=== PATIENT | female | born 1965 | race Caucasian/White ===

== ENCOUNTER 2017-11-05 10:12 | Emergency (ER) | payer OTHER ==
[~2017-11-05] VITALS: Ht 177.8 cm; Wt 76.8 kg
[~2017-11-05 10:12] MED LIST: BENTYL20 MG PO; HYDROCODON-ACE1 EAC7 PO; MIGRANE MED PO; NORVASC10 M1 PO; POTASSIUM; SKELAXIN800 MG PO; TORADOL10 MG PO; TRAMADOL HCL50 MG PO; ULTRAM50 MG PO; VALIUM5 MG PO; ZIAC 10/6.251 TABLET PO; ZOFRAN4 MG PO; [UNRECOGNIZED DRUG - OTHER] PO
[2017-11-05 10:41] LABS: HEMATOCRIT 39.1 % (36.0-46.0); HEMOGLOBIN 13.7 G/DL (11.9-15.5); MCH 33.3 PG (29.0-34.0); MCV 95.1 FL (83-99); RBC DIS.WIDTH-CV 12.7 % (11.8-14.6); RBC DIS.WIDTH-SD 44.3 % (39-53); RED BLOOD COUNT 4.11 M/uL (3.80-5.20); WHITE BLOOD COUNT 9.5 K/uL (4.1-10.2)
[2017-11-05 10:51] LABS: APPEARANCE CLEAR ((CLEAR)); BILIRUBIN NEGATIVE; BLOOD NEGATIVE; COLOR STRAW ((YELLOW)); GLUCOSE (STRIP) NEGATIVE; KETONES NEGATIVE; LEUKOCYTES NEGATIVE; NITRITE NEGATIVE; PROTEIN (STRIP) NEGATIVE; SPECIFIC GRAVITY 1.003 (1.000-1.030); UCUL ADDED? NO; UROBILINOGEN 0.2 MG/DL (0.2-1.0)
[2017-11-05 10:51] LABS: CHLORIDE 103 mEq/L (99-109); POTASSIUM 3.2 mEq/L (3.7-5.4); SODIUM 138 mEq/L (136-147)
[2017-11-05 10:52] LABS: GLUCOSE 89 mg/dL (70-99)
[2017-11-05 10:56] LABS: CREATININE 0.8 mg/dL (0.6-1.3); GFR ESTIMATE (CALCULATED) > 59 mL/min/
[2017-11-05 10:57] LABS: UREA NITROGEN (BUN) 18 mg/dL (9-23)
[2017-11-05 11:25] LABS: PLAT.SUFFICIENCY ADEQUATE; PLATELET COUNT 168 K/uL (156-360)
[2017-11-05 11:26] LABS: ALBUMIN 4.3 g/dL (3.2-4.8)
[2017-11-05 11:29] LABS: TOTAL PROTEIN 7.1 g/dL (6.4-8.3)
[2017-11-05 11:31] LABS: TOTAL BILIRUBIN 0.5 mg/dL (0.0-1.0)
[2017-11-05 11:32] LABS: ALKALINE PHOSPHATASE 49 IU/L (3-129)
[2017-11-05 11:34] LABS: AST (GOT) 18 IU/L (2-34); DIRECT BILIRUBIN 0.1 mg/dL (0.0-0.3)
[2017-11-05 11:35] LABS: ALT (GPT) 22 IU/L (3-49); LIPASE 40 U/L (1.0-51.0)
[2017-11-05 11:41] LABS: QUANTITATIVE HCG < 4.0 MIU/ML
[2017-11-05] MEDS ORDERED: ZOFRAN ODT4 MG PO (13:28)
[2017-11-05 14:01] VITALS: BP 132/88
== END 2017-11-05 14:20 | disposition home or self-care (01) ==
LOC: EME 10:12
DX: N23 Unspecified renal colic (principal); Z87.442 Personal history of urinary calculi; Z88.5 Allergy status to narcotic agent; Z88.6 Allergy status to analgesic agent; F17.200 Nicotine dependence, unspecified, uncomplicated
CPT/HCPCS: 74176; 80048; 80076; 81003; 83690; 84702; 85027; 99281; 99285; J2270; J2405; J3010; J7030